=== PATIENT | female | born 1985 | race Caucasian/White ===

== ENCOUNTER 2017-04-09 05:40 | Inpatient (IN) | payer OTHER ==
[~2017-04-09] VITALS: Ht 167.6 cm; Wt 89.8 kg
--- NOTE | ~2017-04-09 | HP ---
ADMIT: 04/09/2017 RM/LOC: 218 [facility] MR#: [id number] [address] [place], [place] [id number] ANITHA IRBY [address] [place] [address] Pre-OP History and Physical SEX: F AGE: 31 : 1985 DATE OF SERVICE: HISTORY OF PRESENT ILLNESS: The patient is a 31-year-old, 2, para 1-0- 0-1, who presented to Labor and Delivery at 39-0/7th weeks' gestation for scheduled repeat section. The patient's estimated date of confinement is 04/16/2017 by first-trimester ultrasound. The patient's has been complicated by history of section x1, as well as Rh negative status, but has otherwise been uncomplicated. LABORATORY DATA: Blood type B negative, antibody screen negative, RPR nonreactive, hep B surface antigen negative, Gonorrhea and Chlamydia negative, HIV negative, normal one-hour glucose tolerance test, and group B Strep negative. PAST MEDICAL HISTORY: Noncontributory. PAST SURGICAL HISTORY: section x1. ALLERGIES: NO KNOWN MEDICAL ALLERGIES. CURRENT MEDICATIONS: vitamins daily. FAMILY HISTORY: Mother with breast cancer at age 28, and father with hypertension. SOCIAL HISTORY: The patient is . She denies any alcohol, tobacco, or drug use. PHYSICAL EXAMINATION: GENERAL: The patient is alert and oriented, in no acute distress. HEART: Regular rate and rhythm without murmurs, gallops, or rubs. ADMIT: 04/09/2017 RM/LOC: 218 [facility] MR#: [id number] [address] [address] ANITHA IRBY [address] [place] [address] Pre-OP History and Physical SEX: F AGE: 31 : 1985 LUNGS: Clear to auscultation bilaterally. ABDOMEN: Soft, nontender, gravid. EXTREMITIES: No edema. No calf tenderness. ASSESSMENT AND PLAN: 1. A 31-year-old 2, para 1-0-0-1, at 39-0/7th weeks' gestation. 2. Previous section x1. Plan to proceed with repeat low transverse section. Risks, benefits, and alternatives of surgery including, but not limited to, risk of bleeding, possibly requiring blood transfusion, risk of infection, risk of injury to bowel or bladder have been discussed with the patient, and she agrees to proceed. 3. Rh negative. We will give RhoGAM if indicated . Nicolette Rich MD/ bhargav JOB #: [id number] CC: Nicolette Rich, Attending Physician NO FAMILY PHYSICIAN, Family Physician
--- NOTE | ~2017-04-09 | OR ---
ADMIT: 04/09/2017 RM/LOC: 218 [facility] MR#: [id number] [address] [address] ANITHA IRBY [address] [place] [id number] Operative/Delivery Room Report SEX: F AGE: 31 : 1985 SURGERY DATE: 04/09/2017 SURGEON: Nicolette Rich MD PROCEDURE: Repeat low transverse section. ANALYTICAL CHEMISTRY TEACHER: Kirsten Schaffer MD, Resident. PREOPERATIVE DIAGNOSES: 1. Intrauterine at 39-0/7th weeks' gestation. 2. Previous section x1. 3. Rh negative. POSTOPERATIVE DIAGNOSES: 1. Intrauterine at 39-0/7th weeks' gestation. 2. Previous section x1. 3. Rh negative. FINDINGS: 1. Liveborn female infant, scores 8 at 1 minute, 9 at 5 minutes. Weight 8 pounds 5 ounces. 2. Normal appearing uterus, tubes, and ovaries bilaterally. ESTIMATED BLOOD LOSS: 600 mL. ANESTHESIA: Spinal. COMPLICATIONS: None. INDICATIONS FOR PROCEDURE: The patient is a 31-year-old 2, para 1-0-0- 1, who presented to Labor and Delivery at 39-0/7th weeks' gestation for scheduled repeat section at term. The patient's was complicated by a history of previous section x1 as well as Rh negative status, but had otherwise been uncomplicated. Risks, benefits, and alternatives of surgery have been discussed with the patient, and she wished to proceed. DESCRIPTION OF PROCEDURE: The patient was taken to the operating room where spinal anesthesia was obtained without difficulty. The patient was placed in dorsal supine position in leftward tilt and prepped and draped in usual sterile fashion. A Luevano catheter had been previously placed. A Pfannenstiel skin incision was made with a scalpel and carried through its underlying layer of fascia. The fascia was nicked in midline and this incision was extended bilaterally using Hess scissors. Superior aspect of the fascial incision was grasped with Jerry clamps and elevated. The underlying rectus muscles were dissected off with Hess scissors. In a similar fashion, the inferior aspect of the fascial incision was grasped with Jerry clamps, elevated, and the underlying rectus muscles were dissected off with Hess scissors. The perineum was entered bluntly and this incision was extended bluntly as well. The ADMIT: 04/09/2017 RM/LOC: 218 [facility] MR#: [id number] [address] [address] ANITHA IRBY [address] [place] [address] Operative/Delivery Room Report SEX: F AGE: 31 : 1985 bladder blade was then placed. The vesicouterine peritoneum was identified and entered sharply with Hess scissors. This incision was extended bilaterally and a bladder flap was created digitally. Bladder blade was then replaced. The lower uterine segment was then incised with scalpel. Clear fluid was noted at time of the amniotomy. The uterine incision was extended bluntly. The 's vertex was grasped and there was some difficulty delivering the vertex due to the vertex not being engaged and so Kiwi vac was used to deliver the vertex. With one pull the vertex was delivered without difficulty, the vacuum was released and the remainder of the delivered as well. The cord was clamped and cut. The was handed off to the warmer and nursing personnel were in attendance. The [address] IV bag to firm the uterus. The placenta then delivered intact. The uterus was exteriorized and cleared of all clots and debris. The uterine incision was then closed in a running locked fashion using 0 Vicryl. Two additional [id number] stitches were used for hemostasis of the uterine incision. The uterus was then replaced into the abdominal cavity. The gutters were checked and cleared of all clots and debris. The uterine incision was again examined and was noted to be hemostatic. The muscles and fascia were examined and made hemostatic with electrocautery. The fascial incision was closed in a running fashion using 0 Vicryl. The subcutaneous layer was brought together with interrupted 2-0 plain gut after making hemostatic with electrocautery. The skin incision was then closed with subcuticular stapler. The patient tolerated the procedure well. All sponge and needle counts were correct. The patient and her recovered in the room in stable condition. Nicolette Rich MD/ bhargav JOB #: [id number] CC: Nicolette Rich, Attending Physician NO FAMILY PHYSICIAN, Family Physician
[2017-04-12] MEDS ORDERED: PRENATAL VIT1 TAB PO (13:55)
[2017-04-12] MEDS ORDERED: COLACE-DPS100 MG PO (13:56)
[2017-04-12] MEDS ORDERED: FEOSOL-DPS325 MG PO (13:56)
[2017-04-12] MEDS ORDERED: NIPPLECREAM TP (13:56)
[2017-04-12] MEDS ORDERED: PERCOCET 5 DPS1 TAB PO (13:56)
[2017-04-12] MEDS ORDERED: MOTRIN-DPS800 MG PO (13:57)
--- NOTE | 2017-05-14 07:41 | DS ---
ADMIT: 04/09/2017 RM/LOC: 218 [facility] MR#: [id number] [facility]#: [id number] [address] [address] ANITHA IRBY [address] [place] [address] Discharge Summary SEX: F AGE: 31 : 1985 ADMISSION DATE: 04/09/2017 DISCHARGE DATE: 04/11/2017 FINAL DIAGNOSIS: 1. A 31-year-old, G2, P2-0-0-2, status post repeat low transverse section at 39 weeks 0 days. 2. Rh negative, status post RhoGAM during and . 3. History of two sections. 4. mother. REASON FOR ADMISSION: This is a 31-year-old, G2, P1-0-0-1 with intrauterine at 39 weeks 0 days, who was admitted to the [facility] for a planned repeat section. The patient's had been complicated by Rh-negative status and a history of section for arrest of descent with her first . HOSPITAL COURSE: The patient was admitted. She ultimately underwent a repeat low transverse section and had a female with a weight of 8 pounds 5 ounces and scores of 8 and 9. The baby stayed at the maternal bedside following delivery. The baby's hospital course was uncomplicated. The patient's course was also uncomplicated. She did initially have difficulty with breast feeding, which was resolved during this admission. did see the patient. She is meeting discharge criteria and desires to be discharged to home today, postoperative day #2. She is undecided on contraception. In regard to Rh negative status, the patient did receive RhoGAM during this admission. DELIVERY INFORMATION: Delivery date was 04/09/2017, delivery time was 0815 hours. sex-female. Weight 8 pounds 5 ounces. scores 8 and 9. Average gestational age infant. LABORATORY DATA: All labs final at the time of discharge. DISCHARGE MEDICATIONS: The patient was discharged home on the following medications: 1. Motrin 800 mg q.8 hours p.r.n. for pain. 2. Percocet 5 mg/325 mg 1-2 tablets q.4 hours p.r.n. for pain. 3. Colace. 4. vitamin. PATIENT INSTRUCTIONS: Patient was instructed to have pelvic rest for six ADMIT: 04/09/2017 RM/LOC: 218 [facility] MR#: [id number] [address] [address] MAHAMED ANITHA M [address] [place] [address] Discharge Summary SEX: F AGE: 31 : 1985 [address] She should not drive while taking narcotic medications. Recommend lifting restriction of 20 pounds for six weeks. Notify her physician with a temperature greater than 100.4, if she is having brisk vaginal bleeding that soaks more than 1 pad per hour, if any area of her breasts becomes red or painful, or if her pain is no longer controlled with oral pain medications. Recommended a general diet as tolerated and increased fluid intake. Discussed symptoms of blues and depression and to contact us immediately should this become a concern. FOLLOWUP: Recommended follow up with Dr. Nicolette Rich in 2 weeks for a wound check and 6 weeks for a check. The patient was seen and discussed with Dr. Nicolette Rich on day of discharge. Kirsten Schaffer MD Resident / Nicolette Rich MD / jaqueline JOB #: [id number] CC: Nicolette Rich MD, Attending Physician NO FAMILY PHYSICIAN, Family Physician
--- NOTE | 2017-05-14 07:41 | HP ---
ADMIT: 04/09/2017 RM/LOC: 218 [facility] MR#: [id number] [facility]#: [id number] [address] [address] ANITHA IRBY [address] [place] [address] History and Physical SEX: F AGE: 31 : 1985 DATE OF SERVICE: CHIEF COMPLAINT: Planned . HISTORY OF PRESENT ILLNESS: This is a 31-year-old, G2, P 1-0-0-1 with an intrauterine at 39 weeks 0 days via ultrasound, who presents for a repeat low transverse section. has been complicated by history of secondary to arrest of descent in her 1st , Rh negative, size greater than dates intrauterine . She denies leaking of fluid, vaginal bleeding, contractions this morning. She reports normal movement. PAST MEDICAL HISTORY: Rh negative. Denies hypertension or asthma. No diabetes. MEDICATIONS: vitamin. ALLERGIES: NO KNOWN MEDICAL ALLERGIES. SOCIAL HISTORY: She is . She denies tobacco use, alcohol use, or recreational drug use. PAST SURGICAL HISTORY: One previous section. FAMILY HISTORY: She has a mother with breast cancer. REVIEW OF SYSTEMS: She denies headache, changes in vision, chest pain, or shortness of breath. No nausea, vomiting, diarrhea, or constipation. PHYSICAL EXAMINATION: VITAL SIGNS: Blood pressure 130/87. She is afebrile. Pulse 116 and respiratory rate 16. GENERAL: She is alert and oriented, in no acute distress. HEART: Regular rate and rhythm. LUNGS: Clear to auscultation bilaterally. ABDOMEN: Gravid. Estimated weight is 3700 g. EXTREMITIES: She has trace edema in bilateral lower extremities. heart tones baseline 140, moderate variability, positive accelerations, no decelerations. Irregular contractions noted on toco. LABS: Blood type B-negative. Hemoglobin 12.1 and platelets 394. LEANNA negative. One-hour glucose tolerance test 124. Rubella immune. RPR ADMIT: 04/09/2017 RM/LOC: 218 [facility] MR#: [id number] [address] [address] ANITHA IRBY [address] [place] [address] History and Physical SEX: F AGE: 31 : 1985 negative. Hepatitis B negative. Gonorrhea and chlamydia negative. HIV negative. ASSESSMENT AND PLAN: This is a 31-year-old, G2, P 1-0-0-1 with an intrauterine at 39 weeks 0 days, who presents for a planned repeat low transverse section. 1. Admit to [facility] for a planned section. Routine preop and postop orders. Antibiotics prior to skin incision. 2. Rh negative. Plan for cord blood evaluation and RhoGAM if needed. 3. heart tones category 1 tracing. The patient was seen and discussed with staff physician, Dr. Nicolette Rich on the day of admission. Kirsten Schaffer MD Resident / Nicolette Rich MD / bhargav JOB #: [id number] CC: Nicolette Rich, Attending Physician NO FAMILY PHYSICIAN, Family Physician
== END 2017-04-11 10:10 | disposition home or self-care (01) | DRG 766 ==
LOC: BC 05:40 → 2LDRP 05:40 → BC 04-16 08:00
PROVIDERS: ADMIT Obstetrics & Gynecology
DX: O34.211 Maternal care for low transverse scar from previous cesarean delivery (principal); D64.9 Anemia, unspecified; O75.89 Other specified complications of labor and delivery; O90.81 Anemia of the puerperium; Z3A.39 39 weeks gestation of pregnancy; Z37.0 Single live birth